=== PATIENT | female | born 1950 | race Caucasian/White ===

== ENCOUNTER → 2017-07-10 | Outpatient (CLI) | payer MEDICARE ==
[~2017-07-10] MED LIST: ASPIRIN81 MG PO; ATENOLOL25 MG PO; CALCIUM 500 +1 EAC4 PO; LAMICTAL150 MG PO; LOVASTATIN20 MG PO; NEXIUM40 MG PO; NORCO 7.5-3251 EACH PO; ZANTAC 7575 MG PO
--- NOTE | 2017-07-11 08:46 | Diagnostic Imaging Report ---
MRI of the left ankle without contrast. History: Ankle pain. Calcaneal stress fracture. Decreased range of motion. Pain worse with walking. Technique: Utilizing a high-field 1.5T magnet, the following sequences were acquired: PD FS in all 3 planes with additional axial PD. Comparison: None. Findings: Achilles tendon and plantar fascia: The Achilles tendon is intact. There is a trace amount of retrocalcaneal bursal fluid. There is mid substance degeneration and thickening involving the medial cord of the plantar fascia with partial tearing at the inferior calcaneal insertion site. There is underlying bone marrow edema in the posterior inferior calcaneus and a mild amount of adjacent soft tissue edema. The findings are best seen on sagittal series 7 image 10 through 13 and series 5 image 20 through 24. Cartilage and bone: Negative for osteochondral lesion of the tibiotalar and subtalar joints. Negative for fracture, osteonecrosis, or stress related edema. Medial ankle: The deltoid ligament complex is intact. The medial flexor tendons are normal. There is a physiologic amount of fluid within the tendon sheath of FHL. Lateral ankle: The anterior talofibular, calcaneofibular, and posterior talofibular ligaments are intact. The syndesmotic ligaments are intact. The peroneal tendons are normal. Anterior ankle: The anterior extensor tendons are normal. Other findings: There is a small tibiotalar joint effusion and mild synovitis. Impression: Findings most consistent with plantar fasciitis/partial tearing involving the medial cord of the plantar fascia at the inferior calcaneal insertion site. There is underlying bone marrow edema in the posterior inferior calcaneus which is likely stress related. No cortical fracture is seen. Signed by: Dr. Ayan Rosenthal M.D. on 07/11/2017 8:42 AM
== END ==
LOC: MRI 15:25
PROVIDERS: ATTEND Podiatrist Foot & Ankle Surgery
DX: S92.002A Unspecified fracture of left calcaneus, initial encounter for closed fracture (principal)

== ENCOUNTER 2019-04-30 18:02 | Emergency (ER) | payer MEDICARE, OTHER ==
[~2019-04-30] VITALS: Ht 172.7 cm; Wt 80.7 kg
--- OUTSIDE RECORDS SUMMARY | 2019-04-30 18:06 | XMS REPORT ---
Author Author [facility] Address Unknown Phone Unavailable Care Team Providers Care Team Manager Name Role Phone Jada KIDD Unavailable Unavailable Payers Payer Name Policy Type Policy Number Effective Date Expiration Date Problems This patient has no known problems. Allergies, Adverse Reactions, Alerts Allergy Name Allergy Type Status Severity Reaction(s) Onset Date Inactive Date Treating Clinician Comments No Known Drug Intolerances DA Active U 2004-05-25 00:00:00 No Known Contrast Allergies DA Active U 2004-05-25 00:00:00 No Known Drug Allergies DA Active U 2004-05-25 00:00:00 No Known Food Allergies DA Active U 2004-05-25 00:00:00 No Known Other Allergies DA Active U 2004-05-25 00:00:00 Medications This patient has no known medications. Results Test Description Test Time Test Comments Text Results Atomic Results Result Comments - MRI BRAIN W WO CONT 2019-04-27 15:54:00 FAX: Shu Edward [phone] [place]: B St: REG FAX: Travis Crespo MD [phone] Name: EVAN RUFFIN [facility] : 1950 Age/S: 69/F [address] Unit #: [id number] Loc: [place] [address] Phys: Shu Greer Acct: [id number] Dis Date: Status: REG CLI PHONE #: [phone] Exam Date: 04/27/2019 1548 FAX #: [phone] Reason: CEREBRAL CYSTS EXAMS: CPT CODE: [id number] MRI BRAIN W WO CONT [id number] REASON FOR EXAM: CEREBRAL CYSTS Exam Order Date: 04/27/2019 2:54 PM Ordering: ANDRAE Flores Attending:ANDRAE Flores Location:[facility] Procedure: - MRI BRAIN W WO CONT Comparison: FINDINGS: Axial, sagittal, and coronal images of the head were obtained using T1, T2 weighted, inversion recovery, and gradient echo sequences. The diffusion images are within normal limits without abnormal signal intensity to suggest acute infarct. IV gadolinium was given. The sagittal images show normal pituitary, cerebellum, and brain stem. No evidence of suprasellar mass. The axial T2, inversion recovery, and gradient echo images show no evidence of extra axial mass. The ventricles, cisterns, and sulci are unremarkable. No evidence of hemorrhage. Minimal periventricular deep white matter disease. The cerebellar pontine angle area is within normal limits. A 1.7 cm right cerebellar cyst noted with signal intensity consistent with a simple cyst. No evidence of internal debris or septation. No abnormal enhancement on the postcontrast exam. No evidence of adjacent vasogenic edema. Small chronic right basal ganglia infarct The coronal images show normal optic chiasm. IMPRESSION: 1.7 cm right cerebellar cyst. Small chronic right basal ganglia infarct. at 1394 Reported and signed by: Marco Antonio Patterson M.D. PAGE 1 Signed Report (CONTINUED) FAX: Shu Edward [phone] [place]: St: REG FAX: Travis Crespo MD [phone] Name: EVAN RUFFIN [facility] : 1950 Age/S: 69/F [address] Unit #: [id number] Loc: [place] [address] Phys: Shu Greer Acct: [id number] Dis Date: Status: REG CLI PHONE #: [phone] Exam Date: 04/27/2019 1549 FAX #: [phone] Reason: CEREBRAL CYSTS EXAMS: CPT CODE: [id number] MRI BRAIN W WO CONT 18751 <Continued> CC: Shu Greer; Travis Torres MD Technologist: MAXX FLORESRT - [facility] Date/Time/By: 04/27/2019 (9652) : By: Kannan Orig Print D/T: S: 04/27/2019 (6360) PAGE 2 Signed Report MRI ANKLE LEFT WO [place] [address] Patient Name: EVAN RUFFIN MR #: [id number] : 1950 Age/Sex: 67/F Req #: [id number] Adm Physician: Ordered by: TAMARA KIDD DPM Report #: [id number] Location: MRI Room/Bed: Procedure: [id number] MRI/MRI ANKLE LEFT WO Exam Date: 07/10/17 Exam Time: 7636 REPORT STATUS: Signed MRI of the left ankle without contrast. History: Ankle pain. Calcaneal stress fracture. Decreased range of motion. Pain worse with walking. Technique: Utilizing a high-field 1.5T magnet, the following sequences were acquired: PD FS in all 3 planes with additional axial PD. Comparison: None. Findings: Achilles tendon and plantar fascia: The Achilles tendon is intact. There is a trace amount of retrocalcaneal bursal fluid. There is mid substance degeneration and thickening involving the medial cord of the plantar fascia with partial tearing at the inferior calcaneal insertion site. There is underlying bone marrow edema in the posterior inferior calcaneus and a mild amount of adjacent soft tissue edema. The findings are best seen on sagittal series 7 image 10 through 13 and series 5 image 20 through 24. Cartilage and bone: Negative for osteochondral lesion of the tibiotalar and subtalar joints. Negative for fracture, osteonecrosis, or stress related edema. Medial ankle: The deltoid ligament complex is intact. The medial flexor tendons are normal. There is a physiologic amount of fluid within the tendon sheath of FHL. Lateral ankle: The anterior talofibular, calcaneofibular, and posterior talofibular ligaments are intact. The syndesmotic ligaments are intact. The peroneal tendons are normal. Anterior ankle: The anterior extensor tendons are jon l. Other findings: There is a small tibiotalar joint effusion and mild synovitis. Impression: Findings most consistent with plantar fasciitis/partial tearing involving the medial cord of the plantar fascia at the inferior calcaneal insertion site. There is underlying bone marrow edema in the posterior inferior calcaneus which is likely stress related. No cortical fracture is seen. Signed by: Dr. Paul Rosenthal M.D. on 07/11/2017 8:42 AM Dictated By: PAUL ROSENTHAL MD, MD 1 Transcribed By: TOÑITO on 07/11/17841 COPY TO: TAMARA KIDD DPM
[2019-04-30] MEDS ORDERED: ONDANSETRON HCL 4 MG ORAL DISINTEGRATING TAB PO ONE (18:15)
[2019-04-30] MEDS ORDERED: HYDROCODONE/APAP 5MG-325MG TAB PO ONE (18:15)
[2019-04-30] MEDS ORDERED: NEOMYCIN/POLYMYX/BACITR OINT 0.9 GM PKT TOP ONE (18:45)
[2019-04-30] MEDS ORDERED: NEOMYCIN/POLYMYX/BACITR OINT 0.9 GM PKT ONE (18:45)
--- NOTE | 2019-04-30 18:52 | Diagnostic Imaging Report ---
Exam: Left Knee Series. History: Status post fall Comparison: None. Findings: 4 views of the left knee. There is decreased bone mineralization, which limits evaluation of the bony structures. Negative for acute, displaced fracture or dislocation. The joint spaces are relatively well-preserved. No abnormal soft tissue calcification or mass. No suprapatellar effusions or soft tissue swelling. Impression: 1. Decreased bone mineralization limits evaluation of bony structures. No acute, displaced fracture or dislocation, within the limitations of the study. Signed by: Dr. Natanael Strauss M.D. on 04/30/2019 6:48 PM
[2019-04-30 19:05] VITALS: BP 133/58
== END 2019-04-30 19:25 | disposition home or self-care (01) ==
LOC: ER 18:02
DX: S80.02XA Contusion of left knee, initial encounter (principal); S80.212A Abrasion, left knee, initial encounter; W18.09XA Striking against other object with subsequent fall, initial encounter; Y93.K9 Activity, other involving animal care; Y92.009 Unspecified place in unspecified non-institutional (private) residence as the place of occurrence of the external cause
CPT/HCPCS: 73562; 99284; Q0162

== ENCOUNTER 2020-11-18 10:11 | Emergency (ER) | payer MEDICARE, OTHER ==
[~2020-11-18] VITALS: Ht 175.3 cm; Wt 86.2 kg
[2020-11-18] MEDS ORDERED: ALBUTEROL/IPRATROPIUM 3 ML NEB NEB ONE (11:30)
[2020-11-18] MEDS ORDERED: DEXAMETHASONE SOD PHOS INJ 4 MG/ML VIAL IM ONE (11:30)
[2020-11-18] MEDS ORDERED: DEXAMETHASONE SOD PHOS INJ 4 MG/ML VIAL ONE (11:39)
[2020-11-18] MEDS ORDERED: ALBUTEROL/IPRATROPIUM 3 ML NEB ONE (11:45)
[2020-11-18] MEDS ORDERED: VENTOLIN HFA18 GM INH (12:30)
[2020-11-18] MEDS ORDERED: MEDROL4 MG PO (12:31)
[2020-11-18] MEDS ORDERED: GUAIFEN-CODEINE5 ML PO (12:34)
[2020-11-18 12:51] VITALS: BP 130/61
== END 2020-11-18 12:59 | disposition home or self-care (01) ==
LOC: FSED 10:32
DX: R05 Cough (principal); J06.9 Acute upper respiratory infection, unspecified; J98.01 Acute bronchospasm; I10 Essential (primary) hypertension; K21.9 Gastro-esophageal reflux disease without esophagitis; E78.5 Hyperlipidemia, unspecified; G40.909 Epilepsy, unspecified, not intractable, without status epilepticus
CPT/HCPCS: 71046; 99283; J1100

== ENCOUNTER 2020-12-24 09:14 | Emergency (ER) | payer MEDICARE, OTHER ==
[~2020-12-24] VITALS: Ht 172.7 cm; Wt 88.9 kg
[~2020-12-24 09:14] MED LIST changes: +GUAIFEN-CODEINE5 ML PO; +MEDROL4 MG PO; +VENTOLIN HFA18 GM INH
[2020-12-24] MEDS ORDERED: IBUPROFEN400 MG PO (09:56)
== END 2020-12-24 10:44 | disposition home or self-care (01) ==
LOC: FSED 09:18
DX: R07.89 Other chest pain (principal); M25.511 Pain in right shoulder; V43.52XA Car driver injured in collision with other type car in traffic accident, initial encounter; Y93.89 Activity, other specified; Y92.410 Unspecified street and highway as the place of occurrence of the external cause
CPT/HCPCS: 71046; 99283

== ENCOUNTER → 2022-11-29 | Day surgery (SDC) | payer MEDICARE, OTHER ==
[2022-11-27 16:08] LABS: BASOPHILS % 0.4 % (0.0-1.0); EOSINOPHILS # (AUTO) 0.2 (0.0-0.4); EOSINOPHILS % 1.9 % (0.0-6.0); HEMOGLOBIN 12.4 g/dL (12.0-16.0); LYMPHOCYTES # (AUTO) 2.7 (1.0-3.2); LYMPHOCYTES % 33.5 % (18.0-39.1); MEAN CORPUSCULAR HEMOGLOBIN 30.4 pg (28-32); MEAN CORPUSCULAR HGB CONC 33.5 g/dL (31-35); MEAN CORPUSCULAR VOLUME 90.7 fL (81-99); MONOCYTES # (AUTO) 0.6 (0.2-0.8); MONOCYTES % 7.6 % (4.4-11.3); NEUTROPHILS # (AUTO) 4.6 (2.1-6.9); NEUTROPHILS % 56.2 % (38.7-80.0); PLATELET COUNT 331 x10e3/uL (140-360); RED BLOOD COUNT 4.08 x10e6/uL (3.6-5.1); RED CELL DISTRIBUTION WIDTH 13.6 % (11.7-14.4)
[2022-11-27 16:29] LABS: ANION GAP 15.1 mmol/L (8-16); CALCIUM 9.6 mg/dL (8.4-10.2); CREATININE, SERUM 1.02 mg/dL (0.57-1.11); POTASSIUM 4.1 mmol/L (3.5-5.1)
[~2022-11-29] MED LIST changes: +ACETAMINOPHEN 1000 MG/100 ML 100 ML IV ONE; +ALENDRONATE SOD70 MG PO; +CENTRUM ADULTS1 EACH PO; +DEXAMETHASONE SOD PHOS 10 MG/1 ML VIAL ONE; +DEXAMETHASONE SOD PHOS INJ 4 MG/ML SDV ONE; +FENTANYL CITRATE/PF 100MCG/2 ML INJ ONE; +HYDROCHLOROTHIA25 MG PO; +IBUPROFEN400 MG PO; +KETOROLAC TROMETHAMINE 30 MG/ML VIAL ONE; +LACTATED RINGER'S 1,000 ML ONE; +LIDOCAINE HCL 2% LOCAL INJ 5 ML SDV VIAL INJ ONE; +MIDAZOLAM HCL 2 MG/2 ML VIAL ONE; +NAPROXEN250 MG PO; +ONDANSETRON HCL INJ 2MG/ML 2ML 2 MG/ML VIAL ONE; +POVIDONE IODINE 0.05% 0.05 % ML PO ONE; +PROPOFOL IV EMULSION 10 MG/ML 20 ML VIAL ONE; +PROTONIX20 MG PO; +ROPIVACAINE 0.5% 5 MG/ML 30 ML SDV ONE
[2022-11-29] MEDS: HYDROMORPHONE 1MG/1ML INJ ONE ×5 (13:35→14:00)
[2022-11-29 15:15] VITALS: BP 125/67; PULSE 67; RESP 17; O2SAT 96
== END | disposition home or self-care (01) ==
LOC: OR 10:17
PROVIDERS: ATTEND Specialist
DX: S52.571A Other intraarticular fracture of lower end of right radius, initial encounter for closed fracture (principal); M80.00XA Age-related osteoporosis with current pathological fracture, unspecified site, initial encounter for fracture; E78.5 Hyperlipidemia, unspecified; K21.9 Gastro-esophageal reflux disease without esophagitis; W18.39XA Other fall on same level, initial encounter; Z01.810 Encounter for preprocedural cardiovascular examination; Z01.812 Encounter for preprocedural laboratory examination; Z01.818 Encounter for other preprocedural examination; Z79.899 Other long term (current) drug therapy; Z68.31 Body mass index [BMI] 31.0-31.9, adult
CPT/HCPCS: 25608; 36415; 71046; 76000; 80048; 85025; 93005; C1713 ×4; J0131; J0690; J1100 ×2; J1170; J1885; J2001; J2250; J2405; J2704; J2795; J3010; J7121

== ENCOUNTER → 2024-01-07 | Outpatient (REF) | payer MEDICARE ==
[~2024-01-07] MED LIST changes: -ACETAMINOPHEN 1000 MG/100 ML 100 ML IV ONE; -DEXAMETHASONE SOD PHOS 10 MG/1 ML VIAL ONE; -DEXAMETHASONE SOD PHOS INJ 4 MG/ML SDV ONE; -FENTANYL CITRATE/PF 100MCG/2 ML INJ ONE; +GADOBENATE DIMEGLUMINE 0 ML IV ONE; +GADOBENATE DIMEGLUMINE 1 ML IV ONE; -KETOROLAC TROMETHAMINE 30 MG/ML VIAL ONE; -LACTATED RINGER'S 1,000 ML ONE; -LIDOCAINE HCL 2% LOCAL INJ 5 ML SDV VIAL INJ ONE; -MIDAZOLAM HCL 2 MG/2 ML VIAL ONE; -ONDANSETRON HCL INJ 2MG/ML 2ML 2 MG/ML VIAL ONE; -POVIDONE IODINE 0.05% 0.05 % ML PO ONE; -PROPOFOL IV EMULSION 10 MG/ML 20 ML VIAL ONE; -ROPIVACAINE 0.5% 5 MG/ML 30 ML SDV ONE
== END ==
LOC: MRI 10:37
PROVIDERS: ATTEND Physician Assistant
DX: G93.0 Cerebral cysts (principal); Z86.73 Personal history of transient ischemic attack (TIA), and cerebral infarction without residual deficits
CPT/HCPCS: 70553; A9577

== ENCOUNTER → 2024-12-31 | Outpatient (REF) | payer MEDICARE ==
[~2024-12-31] MED LIST changes: -GADOBENATE DIMEGLUMINE 0 ML IV ONE; -GADOBENATE DIMEGLUMINE 1 ML IV ONE
== END ==
LOC: MRI 09:40
PROVIDERS: ATTEND Internal Medicine Rheumatology
DX: M47.816 Spondylosis without myelopathy or radiculopathy, lumbar region (principal)
CPT/HCPCS: 72148

== ENCOUNTER 2025-01-15 16:24 | Emergency (ER) | payer MEDICARE ==
[~2025-01-15] VITALS: Ht 172.7 cm; Wt 88.9 kg
[2025-01-15 16:41] VITALS: TEMP 98.4
[2025-01-15] MEDS ORDERED: MEDROL4 M2 PO (17:55)
[2025-01-15 18:04] VITALS: PULSE 86; RESP 18; O2SAT 98
[2025-01-15] MEDS: DEXAMETHASONE SOD PHOS 10 MG/1 ML VIAL IM ONE (18:04)
== END 2025-01-15 18:06 | disposition home or self-care (01) ==
LOC: ER 16:41
DX: R53.1 Weakness (principal); R20.2 Paresthesia of skin; I10 Essential (primary) hypertension; E78.5 Hyperlipidemia, unspecified; K21.9 Gastro-esophageal reflux disease without esophagitis; M19.09 Primary osteoarthritis, other specified site
CPT/HCPCS: 96372; 99283; J1100